=== PATIENT | female | born 1990 | race African-American/Black ===

== ENCOUNTER 2021-08-06 03:15 | Emergency (ER) | payer SELFPAY ==
[~2021-08-06] VITALS: Ht 157.5 cm; Wt 61.0 kg
[2021-08-06] MEDS ORDERED: MORPHINE SULFATE 4 MG/ML CPJ (NOT FOR IM USE) IV STA (03:42)
[2021-08-06] MEDS ORDERED: ONDANSETRON HCL 4MG/2ML INJ IV STA (03:42)
[2021-08-06] MEDS ORDERED: FAMOTIDINE 20MG TABLET PO ONE (04:00)
[2021-08-06] MEDS ORDERED: VISCOUS LIDOCAINE 2% 15 ML UDC MM PRN (04:00)
[2021-08-06 04:14] LABS: BASOPHILS % 0.9 % (0.0-2.0); EOSINOPHILS % 2.3 % (0.0-5.0); HEMATOCRIT. 29.9 % (36.0-48.0); HEMOGLOBIN. 8.7 g/dL (12.0-16.0); LYMPHOCYTES % 41.8 % (20.0-50.0); MEAN CORPUSCULAR HEMOGLOBIN 18.5 pg (28.0-32.0); MEAN PLATELET VOLUME 8.8 fl (7.4-10.4); MONOCYTES % 5.8 % (2.0-8.0); NEUTROPHILS % 49.2 % (40.0-76.0); PLATELET 370 x1000/uL (130-400); RED BLOOD CELL COUNT 4.67 mill/uL (4.2-5.4); RED CELL DISTRIBUTION WIDTH 21.4 % (11.6-14.6)
[2021-08-06 04:20] LABS: PLATELET ESTIMATE NORMAL
[2021-08-06 04:31] LABS: CHLORIDE 107 mEq/L (98-107)
[2021-08-06 04:37] LABS: ETHANOL BLOOD < 10 mg/dL
[2021-08-06 04:40] LABS: HCG SCREEN NEGATIVE
[2021-08-06] MEDS ORDERED: MAG-55 MT (06:00)
[2021-08-06] MEDS ORDERED: FAMO-135 MT (06:00)
[2021-08-06 07:55] VITALS: BP 127/65
== END 2021-08-06 07:59 | disposition home or self-care (01) ==
LOC: ER 03:15
DX: K29.70 Gastritis, unspecified, without bleeding (principal)
CPT/HCPCS: 36415; 71045; 80053; 80320; 84703; 85025; 99284; G0480